=== PATIENT | female | born 1970 ===

== ENCOUNTER 2017-12-20 16:58 | Emergency (ER) | payer BC ==
--- NOTE | 2017-12-20 17:47 | ED PDOC ---
HPI: General Adult Time Seen by Provider: 12/20/17 17:20 Chief Complaint (Nursing): Dizziness/Lightheaded Chief Complaint (Provider): Dizziness, generalized weakness History Per: Patient History/Exam Limitations: no limitations Onset/Duration Of Symptoms: Hrs Have you had recent travel within the past 21 days to any of the following countries: [place], [place], [place] or [place]?: No Additional History Per: Patient Additional Complaint(s): 47yo female, otherwise healthy, comes to ER for evaluation of dizziness and generalized weakness since earlier today. Patient states this morning, she had a cup of coffee and had not eaten anything after; she felt her symptoms might have been due to lack of food today and states she ate some raisins and peanuts after which she had vomiting. She was seen at an urgent care prior to arrival and given nausea medication with resolution of symptoms. Currently, patient reports generalized weakness. Otherwise, she denies any fever, chills, chest pain, shortness of breath, abdominal pain, weakness, numbness, headache or vision changes. She has no additional medical complaints. PMD: None provided Past Medical History Reviewed: Historical Data, Nursing Documentation, Vital Signs Vital Signs: Last Vital Signs Temp 98.9 F 12/20/17 16:59 Pulse 80 12/20/17 16:59 Resp 18 12/20/17 16:59 BP 140/80 12/20/17 16:59 Pulse Ox 99 12/20/17 22:27 - Medical History PMH: No Chronic Diseases - Surgical History Surgical History: (x 2) Other surgeries: hysterecomty - Family History Family History: States: No Known Family Hx - Living Arrangements Living Arrangements: With Family - Allergies Allergies/Adverse Reactions: Allergies Allergy/AdvReac Type Severity Reaction Status Date / Time No Known Allergies Allergy Verified 12/20/17 17:37 Review of Systems ROS Statement: Except As Marked, All Systems Reviewed And Found Negative Constitutional: Positive for: Weakness, Malaise Eyes: Negative for: Vision Change Cardiovascular: Negative for: Chest Pain Respiratory: Negative for: Shortness of Breath Gastrointestinal: Positive for: Vomiting. Negative for: Abdominal Pain, Diarrhea Neurological: Positive for: Dizziness. Negative for: Weakness, Numbness, Headache Physical Exam - Reviewed Nursing Documentation Reviewed: Yes Vital Signs Reviewed: Yes - Physical Exam Appears: Positive for: Non-toxic, No Acute Distress Head Exam: Positive for: ATRAUMATIC, NORMAL INSPECTION, NORMOCEPHALIC Skin: Positive for: Normal Color, Warm Eye Exam: Positive for: EOMI, PERRL. Negative for: Nystagmus Neck: Positive for: Normal, Painless ROM, Supple Cardiovascular/Chest: Positive for: Regular Rate, Rhythm. Negative for: Murmur , Tachycardia Respiratory: Positive for: Normal Breath Sounds Pulses-Radial (L): 2+ Pulses-Radial (R): 2+ Gastrointestinal/Abdominal: Positive for: Normal Exam, Soft. Negative for: Tenderness Back: Positive for: Normal Inspection. Negative for: L CVA Tenderness, R CVA Tenderness, Vertebral Tenderness Extremity: Positive for: Normal ROM. 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 Negative for: Motor/ Sensory Deficits, Aphasia, Facial Droop - Laboratory Results Result Diagrams: 12/20/17 17:48 12/20/17 17:48 - ECG ECG: Positive for: Interpreted By Me, Viewed By Me O2 Sat by Pulse Oximetry: 99 (RA) Pulse Ox Interpretation: Normal - Progress Re-evaluation Time: 22:40 Condition: Re-examined, Improved Medical Decision Making Medical Decision Making: Impression: Generalized weakness, dizziness Differential: Peripheral vertigo (r/o BPPV) vs. central vertigo (r/o TIA); UTI; atypical presentation of ACS or PE; dehydration Plan: * CT Head w/o contrast * IV Fluids * Labs * EKG Time: 1840 CT Head FINDINGS: Streak artifact from patient's left urine. HEMORRHAGE: No intracranial hemorrhage. BRAIN: No mass effect or edema. No atrophy or chronic microvascular ischemic changes.Please note that MRI with diffusion imaging is more sensitive in the detection of acute ischemic event. VENTRICLES: No hydrocephalus. CALVARIUM: Unremarkable. PARANASAL SINUSES: Unremarkable as visualized. No significant inflammatory changes. MASTOID AIR CELLS: Unremarkable as visualized. No inflammatory changes. OTHER FINDINGS: None. IMPRESSION: No acute intracranial pathology identified. Time: 3 CT Chest FINDINGS: Pulmonary arteries: Technically limited examination secondary to suboptimal contrast bolus timing. This renders the examination nondiagnostic for subtle segmental or subsegmental pulmonary emboli. Within this limitation there is no evident filling defect to suggest embolism. Aorta: No acute findings. No thoracic aortic aneurysm. Lungs: The central airways are patent. Subpleural reticular opacities within the dependent aspect of the lower lobes may represent subsegmental atelectasis or scarring. Pleural space: Normal. No significant effusion. No pneumothorax. Heart: Normal. No cardiomegaly. No significant pericardial effusion. No evidence of RV dysfunction. Bones/joints: Mild pectus excavatum. Shankar index 2.9. The osseous structures are otherwise normal for age. No acute osseous abnormality. No dislocation. Soft tissues: Normal. Lymph nodes: Prominent right hilar lymph node measuring 8mm in diameter. Small prevascular lymph nodes. No lymphadenopathy. 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 IMPRESSION: 1. Technically limited exam secondary to suboptimal contrast bolus timing. This renders the examination nondiagnostic for subtle segmental or subsegmental pulmonary artery. Within this limitation there are is no large central or lobar filling defect to suggest embolism. 2. No acute cardiopulmonary abnormality. 3. Mild pectus excavatum Scribe Attestation: Documented by Sarah Ornelas, acting as a scribe for Devin De Jesus MD. Provider Scribe Attestation: All medical record entries made by the Scribe were at my direction and personally dictated by me. I have reviewed the chart and agree that the record accurately reflects my personal performance of the history, physical exam, medical decision making, and the department course for this patient. I have also personally directed, reviewed, and agree with the discharge instructions and disposition. Disposition - Clinical Impression Clinical Impression: Dizziness, Elevated WBCs - Patient ED Disposition Is Patient to be Admitted: No Doctor Will See Patient In The: Office Counseled Patient/Family Regarding: Studies Performed, Diagnosis, Need For Followup - Disposition Referrals: [facility] [Outside] Disposition: Routine/Home Disposition Time: 22:41 Condition: GOOD Additional Instructions: JASON NOWAK, thank you for letting us take care of you today. Your provider was Devin De Jesus MD and you were treated for DIZZINESS. The emergency medical care you received today was directed at your acute symptoms. If you were prescribed any medication, please fill it and take as directed. It may take several days for your symptoms to resolve. Return to the Emergency Department if your symptoms worsen, do not improve, or if you have any other problems. Please contact your doctor or call one of the physicians/clinics you have been referred to that are listed on the Patient Visit Information form that is included in your discharge packet. Bring any paperwork you were given at discharge with you along with any medications you are taking to your follow up visit. Our treatment cannot replace ongoing medical care by a primary care provider outside of the emergency department. Thank you for allowing the [facility] team to be part of your care today. If you had an X-Ray or CT scan: A Radiologist will review the ED reading if any change in treatment is needed we will contact you. If you had a blood, urine, or wound culture: It will take several days for the results, if any change in treatment is needed we will contact you. If you had an STI test: It will take 48 hours for the results. Please call after 1 week if you have not heard back. Instructions: Dizziness, Nonvertigo, (DC)
[2017-12-20 17:55] LABS: BASO # 0.1 K/uL (0.0-0.2); BASO % 0.3 % (0.0-2.0); HEMOGLOBIN 14.2 g/dL (12.0-16.0); LYMPH # 1.9 K/uL (1.0-4.3); LYMPH % 12.2 % (20.0-40.0); MEAN CELL VOLUME 87.7 fl (81.0-99.0); MEAN CORPUSCULAR HEMOGLOBIN 28.8 pg (27.0-31.0); MEAN CORPUSCULAR HGB CONC 32.9 g/dL (33.0-37.0); MEAN PLATELET VOLUME 9.2 fl (7.2-11.7); MONO # 0.4 K/uL (0.0-0.8); MONO % 2.6 % (0.0-10.0); NEUT # 13.2 K/uL (1.8-7.0); NEUT % 84.9 % (50.0-75.0); NRBC % 0.1 % (0.0-0.0); RBC 4.91 Mil/uL (3.80-5.20); RED CELL DISTRIBUTION WIDTH 15.8 % (11.5-14.5); WHITE BLOOD COUNT 15.6 K/uL (4.8-10.8)
[2017-12-20 18:07] LABS: BLOOD UREA NITROGEN 8 mg/dl (7-17); CALCIUM 9.1 mg/dL (8.4-10.2); GFR NON-AFRICAN AMERICAN > 60; LIPASE 42 U/L (23-300)
[2017-12-20] MEDS ORDERED: Sodium Chloride 0.9% 1,000 ML IV SCH ×2 (18:30→18:43)
--- NOTE | 2017-12-20 18:41 | CT ---
Date of service: 12/20/2017 PROCEDURE: CT HEAD WITHOUT CONTRAST. HISTORY: dizziness COMPARISON: None available. TECHNIQUE: Axial computed tomography images were obtained through the head/brain without intravenous contrast. Radiation dose: Total exam DLP = 784.67 mGy-cm. This CT exam was performed using one or more of the following dose reduction techniques: Automated exposure control, adjustment of the mA and/or kV according to patient size, and/or use of iterative reconstruction technique. FINDINGS: Streak artifact from patient's left urine. HEMORRHAGE: No intracranial hemorrhage. BRAIN: No mass effect or edema. No atrophy or chronic microvascular ischemic changes.Please note that MRI with diffusion imaging is more sensitive in the detection of acute ischemic event. VENTRICLES: No hydrocephalus. CALVARIUM: Unremarkable. PARANASAL SINUSES: Unremarkable as visualized. No significant inflammatory changes. MASTOID AIR CELLS: Unremarkable as visualized. No inflammatory changes. OTHER FINDINGS: None. IMPRESSION: No acute intracranial pathology identified.
[2017-12-20] MEDS ORDERED: Iodixanol 320 MG/ML 100 ML BOTTLE IV ONE (20:52)
[2017-12-20] MEDS ORDERED: Sodium Chloride 0.9% 50 ML IV ONE (20:52)
[2017-12-20] MEDS ORDERED: DiphenhydrAMINE 50 mg/ml Inj ONE (21:09)
[2017-12-20] MEDS ORDERED: DiphenhydrAMINE 50 mg/ml Inj IV STA ×2 (21:11→21:19)
[2017-12-21 00:55] VITALS: BP 136/76; PULSE 73; RESP 19; TEMP 98.7; O2SAT 100
--- NOTE | 2017-12-21 08:49 | CARD ---
APPROVED REPORT Date of service: 12/20/2017 <Conclusion> Normal sinus rhythm Prolonged QT Abnormal ECG
--- NOTE | 2017-12-21 10:59 | CT ---
Date of service: 12/20/2017 PROCEDURE: CT Chest with contrast (Pulmonary Angiogram) HISTORY: chest pain COMPARISON: None available. TECHNIQUE: Axial computed tomography images were obtained of the chest in the pulmonary arterial phase of enhancement. Coronal and sagittal reformatted images were created and reviewed. Intravenous contrast dose: Visipaque 320, 90 cc Radiation dose: Total exam DLP = 356.99 mGy-cm. This CT exam was performed using one or more of the following dose reduction techniques: Automated exposure control, adjustment of the mA and/or kV according to patient size, and/or use of iterative reconstruction technique. FINDINGS: PULMONARY ARTERIES: Limited pulmonary artery opacification clears the central pulmonary arteries of potential pulmonary embolus however medium and smaller pulmonary branches are limited evaluation. No gross pulmonary embolus identified. AORTA: No acute findings. No thoracic aortic aneurysm. LUNGS: Unremarkable. No nodule, mass or pulmonary consolidation. Limited bilateral basilar dependent atelectasis. PLEURAL SPACES: Unremarkable. No effusion or pneumothorax. HEART: Upper limits normal cardiac size. No pulmonary vascular congestion evident grossly. LYMPH NODES: Shotty preaortic lymph nodes are identified without significant lymphadenopathy throughout the mediastinum including the hilar regions bilaterally. BONES, CHEST WALL: Borderline pectus excavatum deformity. No acute fracture or destructive bony lesion appreciable throughout. OTHER FINDINGS: Unremarkable. IMPRESSION: No prominent pulmonary embolus appreciated however a opacification is technically limited throughout pulmonary artery system and medium to small branch pulmonary arteries are difficult to evaluate. Clinically correlate further. Limited bilateral basilar dependent atelectasis. No pleural or pericardial effusion or significant lymphadenopathy. Upper limits normal cardiac size. Concordant preliminary report from [facility], 12/20/2017.
== END 2017-12-20 23:35 | disposition home or self-care (01) ==
LOC: H.ER 16:58
DX: R42 Dizziness and giddiness (principal); D72.829 Elevated white blood cell count, unspecified; Z90.81 Acquired absence of spleen; Q67.6 Pectus excavatum
CPT/HCPCS: 70450; 71275; 80048; 81025; 83690; 84484; 85025; 85378; 93005; 96360; 99285; J1200; J7030; Q9967